=== PATIENT | male | born 1970 | race Caucasian/White ===

== ENCOUNTER → 2016-07-11 | Emergency (ER) | payer SELFPAY | END | disposition disaster alternative care site (69) | LOC: GAMB 21:24 | DX: R09.89 Other specified symptoms and signs involving the circulatory and respiratory systems (principal) ==

== ENCOUNTER → 2016-08-03 | Outpatient (CLI) | payer BC | END | disposition disaster alternative care site (69) | LOC: GRAD 08:31 | DX: R13.14 Dysphagia, pharyngoesophageal phase (principal) ==

== ENCOUNTER → 2016-08-10 | Outpatient (CLI) | payer BC | END | disposition disaster alternative care site (69) | LOC: LHSC 14:13 | DX: R13.10 Dysphagia, unspecified (principal) ==